=== PATIENT | female | born 1960 | race Two or more races ===

== ENCOUNTER 2021-12-24 17:41 | Inpatient (IN) | payer MEDICAID, SELFPAY ==
[~2021-12-24] VITALS: Ht 157.5 cm; Wt 74.4 kg
[~2021-12-24 17:41] MED LIST: CLON0.1T2 PO; DIPH50 PO; DIVA-112 PO; FLUO40CA7 PO; GABA-1201 PO; GABA800T PO; IBUP-2077 PO; IBUP-671 PO; MULT1TAB70 PO; PANT40TA54 PO; QUET100T PO; QUET25TA PO; TRAM50TA4 PO; TRAZ-186 PO
[2021-12-24 19:39] LABS: BASOPHILS % (AUTO) 0.3 % (0.0-2.0); HEMATOCRIT 31.8 % (36-46); HEMOGLOBIN 10.6 g/dL (12.0-16.0); LYMPHOCYTES # (AUTO) 1.6 K/uL (1.0-4.8); MEAN CORPUSCULAR HEMOGLOBIN 26.6 pg (26.0-34.0); MEAN CORPUSCULAR HGB CONC 33.3 G/dL (31.0-37.0); MEAN CORPUSCULAR VOLUME 80 fL (80-100); MONOCYTES # (AUTO) 0.6 K/uL (0.1-1.0); NEUTROPHILS # (AUTO) 5.6 K/uL (1.8-7.7); NEUTROPHILS % (AUTO) 69.7 % (40.0-70.0); PLATELET COUNT (AUTO) 251 K/uL (150-450); RED BLOOD CELL COUNT(AUTO) 3.97 MIL/uL (4.00-5.20); RED CELL DISTRIBUTION WIDTH 14.9 % (11.5-14.5)
[2021-12-24 20:02] LABS: ANION GAP 13 mmol/L (8-16); CALCIUM, TOTAL 8.2 mg/dL (8.8-10.5); CARBON DIOXIDE 26 mmol/L (22-29); CHLORIDE 107 mmol/L (98-107); CREATININE 0.67 mg/dL (0.60-1.30); GLOMERULAR FILTR. RATE CALC > 60 mL/min (>60); GLUCOSE,RANDOM 105 mg/dL (70-110); POTASSIUM 3.6 mmol/L (3.5-5.1); SODIUM SERUM 146 mmol/L (136-145); UREA NITROGEN, BLOOD 15 mg/dL (7-18)
[2021-12-24 20:06] LABS: ALANINE AMINOTRANSFERASE 35 U/L (12-78); ALBUMIN 3.3 g/dL (3.4-5.0); ALKALINE PHOSPHATASE 86 U/L (46-116); ASPARTATE AMINOTRANSFERASE 39 U/L (15-37); BILIRUBIN,TOTAL 0.1 mg/dL (0.1-1.0)
[2021-12-24 20:17] LABS: COVID AG,FIA SOURCE NASAL SWAB
[2021-12-24] MEDS ORDERED: OLANZapine 10 MG TABLET PO PRN (21:15)
[2021-12-24] MEDS ORDERED: ONDANSETRON HCL 4 MG TABLET PO ONE (21:30)
[2021-12-24] MEDS: LORazepam 2 MG TABLET PO PRN (21:37)
[2021-12-24] MEDS: ZOLPIDEM TARTRATE 10 MG TABLET PO PRN (21:37)
[2021-12-24 23:29] LABS: SALICYLATE < 2.8 mg/dL (2.8-20.0)
[2021-12-24 23:35] LABS: ACETAMINOPHEN < 2 mcg/mL (10-30)
[2021-12-25] VITALS (7 sets, daily range): BP systolic 145–162; BP diastolic 82–101
[2021-12-25] MEDS: LORazepam 2 MG TABLET PO PRN ×2 (00:38→06:04)
[2021-12-25] MEDS ORDERED: IBUPROFEN 800 MG TABLET PO PRN (06:30)
[2021-12-25] MEDS: PANTOPRAZOLE SODIUM 40 MG DR TABLET PO SCH (06:38)
[2021-12-25] MEDS ORDERED: LORazepam 2 MG TABLET PO PRN (07:00)
[2021-12-25 08:39] LABS: CHOL/HDL RATIO 2.3 (3.9-5.7)
[2021-12-25] MEDS: CloNIDine HCL 0.1 MG TABLET PO SCH ×2 (09:25→17:00)
[2021-12-25] MEDS: MULTIVITAMINS WITH MINERALS, THERAPEUTIC TABLET PO SCH (09:25)
[2021-12-25] MEDS: LORazepam 2 MG TABLET PO SCH ×4 (09:25→21:29)
[2021-12-25] MEDS ORDERED: DOCUSATE SODIUM 100 MG CAPSULE PO PRN (11:00)
[2021-12-25] MEDS ORDERED: ALBUTEROL SULFATE HFA 90 MCG/PUFF 8 GM INHALER IH PRN (11:00)
[2021-12-25] MEDS ORDERED: LOPERAMIDE HCL 2 MG CAPSULE PO PRN (11:00)
[2021-12-25] MEDS ORDERED: GuaiFENesin/D-METHORPHAN [SUGAR-FREE] 200-20MG/10 ML SYRUP UDCUP PO PRN (11:00)
[2021-12-25] MEDS ORDERED: NICOTINE 14 MG/24 HOUR PATCH TD PRN (11:00)
[2021-12-25] MEDS ORDERED: MAGNESIUM HYDROXIDE SUSPENSION 30 ML UDCUP PO PRN (11:00)
[2021-12-25] MEDS ORDERED: PETROLATUM,WHITE 28 GM JELLY TP PRN (11:00)
[2021-12-25] MEDS ORDERED: MAG HYDROX/AL HYDROX/SIMETH ES 30 ML SUSPENSION UDCUP PO PRN (11:00)
[2021-12-25] MEDS: ONDANSETRON HCL 4 MG TABLET PO PRN (12:06)
[2021-12-25] MEDS ORDERED: GABA-529 PO (13:57)
[2021-12-25] MEDS ORDERED: ZIPR80CA9 PO (13:57)
[2021-12-25] MEDS ORDERED: HYDR100C2 PO (13:57)
[2021-12-25] MEDS: ZIPRASIDONE HCL 80 MG CAPSULE PO SCH (21:29)
[2021-12-25] MEDS: HydrOXYzine PAMOATE 50 MG CAPSULE PO SCH (21:29)
[2021-12-25] MEDS: GABAPENTIN 100 MG CAPSULE PO SCH (21:29)
[2021-12-26] MEDS: PANTOPRAZOLE SODIUM 40 MG DR TABLET PO SCH (06:10)
[2021-12-26 08:25] VITALS: BP 151/99
[2021-12-26 08:32] VITALS: BP 151/99
[2021-12-26] MEDS: LORazepam 2 MG TABLET PO SCH ×4 (08:51→20:36)
[2021-12-26] MEDS: CloNIDine HCL 0.1 MG TABLET PO SCH ×2 (08:51→16:24)
[2021-12-26] MEDS: MULTIVITAMINS WITH MINERALS, THERAPEUTIC TABLET PO SCH (08:51)
[2021-12-26] MEDS: ONDANSETRON HCL 4 MG TABLET PO PRN (11:55)
[2021-12-26 16:19] VITALS: BP 155/100
[2021-12-26 16:22] VITALS: BP 155/100
[2021-12-26] MEDS: ACETAMINOPHEN 325 MG TABLET PO PRN (17:57)
[2021-12-26] MEDS: GABAPENTIN 100 MG CAPSULE PO SCH (20:13)
[2021-12-26] MEDS: ZIPRASIDONE HCL 80 MG CAPSULE PO SCH (20:14)
[2021-12-26] MEDS: HydrOXYzine PAMOATE 50 MG CAPSULE PO SCH (20:15)
[2021-12-27] VITALS (9 sets, daily range): BP systolic 142–158; BP diastolic 82–100
[2021-12-27] MEDS: LORazepam 2 MG TABLET PO PRN (05:30)
[2021-12-27] MEDS ORDERED: LORazepam 1 MG TABLET PO PRN (07:00)
[2021-12-27] MEDS: PANTOPRAZOLE SODIUM 40 MG DR TABLET PO SCH (07:03)
[2021-12-27] MEDS: MULTIVITAMINS WITH MINERALS, THERAPEUTIC TABLET PO SCH (08:56)
[2021-12-27] MEDS: CloNIDine HCL 0.1 MG TABLET PO SCH ×2 (08:56→16:23)
[2021-12-27] MEDS: LORazepam 1 MG TABLET PO SCH ×4 (08:58→21:04)
[2021-12-27] MEDS: IBUPROFEN 400 MG TABLET PO PRN (13:17)
[2021-12-27] MEDS: ACETAMINOPHEN 325 MG TABLET PO PRN (19:40)
[2021-12-27] MEDS: GABAPENTIN 100 MG CAPSULE PO SCH (20:07)
[2021-12-27] MEDS: ZIPRASIDONE HCL 80 MG CAPSULE PO SCH (20:07)
[2021-12-27] MEDS: HydrOXYzine PAMOATE 50 MG CAPSULE PO SCH (20:07)
[2021-12-28] MEDS: PANTOPRAZOLE SODIUM 40 MG DR TABLET PO SCH (06:21)
[2021-12-28 08:00] VITALS: BP 165/93
[2021-12-28] MEDS: MULTIVITAMINS WITH MINERALS, THERAPEUTIC TABLET PO SCH (08:34)
[2021-12-28] MEDS: CloNIDine HCL 0.1 MG TABLET PO SCH ×2 (08:34→16:07)
[2021-12-28 09:33] VITALS: BP 165/90
[2021-12-28] MEDS: IBUPROFEN 400 MG TABLET PO PRN (09:33)
[2021-12-28] MEDS: ONDANSETRON HCL 4 MG TABLET PO PRN (12:44)
[2021-12-28] MEDS: LORazepam 1 MG TABLET PO PRN ×3 (12:45→21:43)
[2021-12-28 16:00] VITALS: BP 178/100
[2021-12-28] MEDS: ACETAMINOPHEN 325 MG TABLET PO PRN (17:06)
[2021-12-28 17:11] VITALS: BP 159/95
[2021-12-28] MEDS: ZIPRASIDONE HCL 80 MG CAPSULE PO SCH (20:12)
[2021-12-28] MEDS: GABAPENTIN 100 MG CAPSULE PO SCH (20:12)
[2021-12-28] MEDS: HydrOXYzine PAMOATE 50 MG CAPSULE PO SCH (20:12)
[2021-12-29] MEDS: PANTOPRAZOLE SODIUM 40 MG DR TABLET PO SCH (06:42)
[2021-12-29 08:00] VITALS: BP 156/88
[2021-12-29] MEDS: CloNIDine HCL 0.1 MG TABLET PO SCH ×2 (10:08→17:42)
[2021-12-29] MEDS: MULTIVITAMINS WITH MINERALS, THERAPEUTIC TABLET PO SCH (10:08)
[2021-12-29] MEDS: LORazepam 2 MG TABLET PO PRN ×3 (11:15→19:53)
[2021-12-29 16:35] VITALS: BP 146/86
[2021-12-29] MEDS: HydrOXYzine PAMOATE 50 MG CAPSULE PO SCH (20:45)
[2021-12-29] MEDS: ZIPRASIDONE HCL 80 MG CAPSULE PO SCH (20:45)
[2021-12-29] MEDS: GABAPENTIN 100 MG CAPSULE PO SCH (20:45)
[2021-12-29] MEDS: ZOLPIDEM TARTRATE 10 MG TABLET PO PRN (21:30)
[2021-12-30] MEDS: PANTOPRAZOLE SODIUM 40 MG DR TABLET PO SCH (06:44)
[2021-12-30] MEDS: CloNIDine HCL 0.1 MG TABLET PO SCH ×3 (08:57→16:11)
[2021-12-30] MEDS: MULTIVITAMINS WITH MINERALS, THERAPEUTIC TABLET PO SCH (08:57)
[2021-12-30 09:11] VITALS: BP 109/65
[2021-12-30] MEDS: IBUPROFEN 400 MG TABLET PO PRN (09:11)
[2021-12-30] MEDS ORDERED: HYDR100C2 PO (09:55)
[2021-12-30] MEDS ORDERED: ZIPR80CA9 PO (09:55)
[2021-12-30] MEDS ORDERED: GABA-529 PO (09:55)
[2021-12-30] MEDS: LORazepam 2 MG TABLET PO PRN ×2 (10:06→14:08)
[2021-12-30 13:05] LABS: COVID AG,FIA SOURCE NASOPHARYNGEAL
[2021-12-30 16:32] VITALS: BP 157/98
== END 2021-12-30 16:40 | disposition home or self-care (01) | DRG 753 ==
LOC: EMS 17:43 → 3EX 12-25 00:03 → 3EI 12-26 14:00
PROVIDERS: ADMIT Psychiatry & Neurology Psychiatry; ATTEND Psychiatry & Neurology Psychiatry
DX: F31.4 Bipolar disorder, current episode depressed, severe, without psychotic features (principal); R45.851 Suicidal ideations; B18.2 Chronic viral hepatitis C; F10.239 Alcohol dependence with withdrawal, unspecified; F20.9 Schizophrenia, unspecified; I10 Essential (primary) hypertension; K21.9 Gastro-esophageal reflux disease without esophagitis; K58.9 Irritable bowel syndrome, unspecified; G89.29 Other chronic pain; M54.50 Low back pain, unspecified; M19.90 Unspecified osteoarthritis, unspecified site; Z79.899 Other long term (current) drug therapy; Z91.51 Personal history of suicidal behavior; Z88.8 Allergy status to other drugs, medicaments and biological substances; Z20.822 Contact with and (suspected) exposure to COVID-19
CPT/HCPCS: 80053; 80061; 85025; 93005; 99285; G0378; G0480; G0481; Q0162

== ENCOUNTER 2022-01-10 20:15 | Inpatient (IN) | payer MEDICAID ==
[~2022-01-10] VITALS: Ht 157.5 cm; Wt 73.9 kg
[~2022-01-10 20:15] MED LIST changes: -DIPH50 PO; -DIVA-112 PO; -FLUO40CA7 PO; -GABA-1201 PO; +GABA-529 PO; -GABA800T PO; +HYDR100C2 PO; -IBUP-2077 PO; -IBUP-671 PO; -QUET100T PO; -QUET25TA PO; -TRAM50TA4 PO; -TRAZ-186 PO; +ZIPR80CA9 PO
[2022-01-10] MEDS ORDERED: SODIUM CHLORIDE 0.9% 1,000 ML IV ONE (21:45)
[2022-01-10] MEDS ORDERED: LORazepam 2 MG/ML VIAL IVP ONE (21:45)
[2022-01-10 21:54] LABS: BASOPHILS % (AUTO) 0.8 % (0.0-2.0); EOSINOPHILS % (AUTO) 0.3 % (1.0-6.0); HEMATOCRIT 33.8 % (36-46); HEMOGLOBIN 11.2 g/dL (12.0-16.0); LYMPHOCYTES # (AUTO) 1.7 K/uL (1.0-4.8); LYMPHOCYTES % (AUTO) 21.1 % (22.0-44.0); MEAN CORPUSCULAR HEMOGLOBIN 26.9 pg (26.0-34.0); MEAN CORPUSCULAR HGB CONC 33.1 G/dL (31.0-37.0); MEAN CORPUSCULAR VOLUME 81 fL (80-100); MONOCYTES # (AUTO) 0.5 K/uL (0.1-1.0); MONOCYTES % (AUTO) 5.9 % (2.0-9.0); NEUTROPHILS # (AUTO) 5.7 K/uL (1.8-7.7); NEUTROPHILS % (AUTO) 71.9 % (40.0-70.0); PLATELET COUNT (AUTO) 262 K/uL (150-450); RED BLOOD CELL COUNT(AUTO) 4.16 MIL/uL (4.00-5.20); RED CELL DISTRIBUTION WIDTH 16.8 % (11.5-14.5)
[2022-01-10 21:56] LABS: COVID AG,FIA SOURCE NASOPHARYNGEAL
[2022-01-10] MEDS ORDERED: ONDANSETRON HCL 4 MG/2 ML VIAL IVP ONE (22:00)
[2022-01-10 22:04] LABS: ANION GAP 14 mmol/L (8-16); CALCIUM, TOTAL 8.1 mg/dL (8.8-10.5); CARBON DIOXIDE 25 mmol/L (22-29); CHLORIDE 102 mmol/L (98-107); CREATININE 0.82 mg/dL (0.60-1.30); GLOMERULAR FILTR. RATE CALC > 60 mL/min (>60); GLUCOSE,RANDOM 85 mg/dL (70-110); SODIUM SERUM 141 mmol/L (136-145); UREA NITROGEN, BLOOD 13 mg/dL (7-18)
[2022-01-10 22:04] LABS: AMPHET/METH SCREEN,URINE NEGATIVE (NEGATIVE); BARBITURATE SCREEN, URINE NEGATIVE (NEGATIVE); BENZODIAZEPINES SCREEN,URINE NEGATIVE (NEGATIVE); CANNABINOID SCREEN,URINE NEGATIVE (NEGATIVE); COCAINE SCREEN,URINE NEGATIVE (NEGATIVE); METHADONE SCREEN, URINE NEGATIVE (NEGATIVE); OPIATE SCREEN,URINE NEGATIVE (NEGATIVE)
[2022-01-10 22:05] LABS: PHENCYCLIDINE SCREEN,URINE NEGATIVE (NEGATIVE)
[2022-01-10 22:10] LABS: ALANINE AMINOTRANSFERASE 40 U/L (12-78); ALBUMIN 3.7 g/dL (3.4-5.0); ALKALINE PHOSPHATASE 82 U/L (46-116); ASPARTATE AMINOTRANSFERASE 42 U/L (15-37); BILIRUBIN,TOTAL 0.5 mg/dL (0.1-1.0); TOTAL PROTEIN, SERUM 7.6 g/dL (6.4-8.2)
[2022-01-10] MEDS ORDERED: DiphenhydrAMINE HCL 50 MG/ML VIAL IVP ONE (23:45)
[2022-01-10] MEDS ORDERED: METOCLOPRAMIDE HCL 5 MG/ML 2 ML VIAL IVP ONE (23:45)
[2022-01-11] MEDS ORDERED: ACETAMINOPHEN 500 MG TABLET PO ONE (01:15)
[2022-01-11] MEDS ORDERED: LORazepam 2 MG/ML VIAL IVP ONE ×3 (01:30→06:00)
[2022-01-11] MEDS ORDERED: IOHEXOL 350 MG/ML 100 ML VIAL ONE (01:50)
[2022-01-11] MEDS ORDERED: SODIUM CHLORIDE 0.9% 100 ML ONE (01:51)
[2022-01-11 03:19] LABS: INFLUENZA TYPE A NEGATIVE FOR TYPE A (NEGATIVE); INFLUENZA TYPE B NEGATIVE FOR TYPE B (NEGATIVE)
[2022-01-11] MEDS ORDERED: HEPARIN SODIUM 25000 UNITS/D5W 250 ML IV PRN (05:00)
[2022-01-11] MEDS ORDERED: ONDANSETRON HCL 4 MG/2 ML VIAL IVP PRN (05:30)
[2022-01-11] MEDS ORDERED: 0.9% SODIUM CHLORIDE 10 ML SYRINGE IVP PRN (05:30)
[2022-01-11] MEDS ORDERED: ACETAMINOPHEN 325 MG TABLET PO PRN (05:30)
[2022-01-11] MEDS ORDERED: MORPHINE SULFATE 2 MG/ML SYRINGE IVP PRN (08:45)
[2022-01-11] MEDS ORDERED: BISACODYL 10 MG RECTAL RECTAL SUPPOSITORY PR PRN (08:45)
[2022-01-11] MEDS ORDERED: HEPARIN SODIUM,PORCINE 5,000 UNITS/ML VIAL IVP PRN ×2 (08:45)
[2022-01-11] MEDS ORDERED: MAGNESIUM HYDROXIDE SUSPENSION 30 ML UDCUP PO PRN (08:45)
[2022-01-11 09:07] LABS: BASOPHILS % (AUTO) 0.6 % (0.0-2.0); EOSINOPHILS % (AUTO) 0.5 % (1.0-6.0); HEMATOCRIT 31.4 % (36-46); HEMOGLOBIN 10.3 g/dL (12.0-16.0); LYMPHOCYTES # (AUTO) 0.9 K/uL (1.0-4.8); LYMPHOCYTES % (AUTO) 15.1 % (22.0-44.0); MEAN CORPUSCULAR HEMOGLOBIN 26.9 pg (26.0-34.0); MEAN CORPUSCULAR HGB CONC 32.7 G/dL (31.0-37.0); MEAN CORPUSCULAR VOLUME 82 fL (80-100); MONOCYTES # (AUTO) 0.4 K/uL (0.1-1.0); MONOCYTES % (AUTO) 6.8 % (2.0-9.0); NEUTROPHILS # (AUTO) 4.7 K/uL (1.8-7.7); PLATELET COUNT (AUTO) 203 K/uL (150-450); RED BLOOD CELL COUNT(AUTO) 3.83 MIL/uL (4.00-5.20); RED CELL DISTRIBUTION WIDTH 17.4 % (11.5-14.5)
[2022-01-11] MEDS: HEPARIN SODIUM 25000 UNITS/D5W 250 ML IV PRN ×2 (09:07→23:17)
[2022-01-11] MEDS: PANTOPRAZOLE SODIUM 40 MG DR TABLET PO SCH (09:08)
[2022-01-11] MEDS: DOCUSATE SODIUM 100 MG CAPSULE PO SCH ×2 (09:08→20:56)
[2022-01-11] MEDS ORDERED: WARFARIN SODIUM-INR 2.0-3.0-RX DOSING PER PROTOCOL PO PRN (09:15)
[2022-01-11] MEDS: LORazepam 2 MG/ML VIAL IVP PRN ×3 (11:54→23:59)
[2022-01-11 12:40] VITALS: BP 152/93
[2022-01-11] MEDS: ONDANSETRON HCL 4 MG/2 ML VIAL IVP PRN ×2 (12:44→18:36)
[2022-01-11 15:04] VITALS: BP 156/97
[2022-01-11] MEDS ORDERED: HEPARIN SODIUM,PORCINE 5,000 UNITS/ML VIAL SQ SCH (16:00)
[2022-01-11 16:52] VITALS: BP 151/77
[2022-01-11] MEDS ORDERED: WARFARIN SODIUM 5 MG TABLET PO ONE (17:00)
[2022-01-11 20:22] VITALS: BP 149/90
[2022-01-11] MEDS: ChlordiazePOXIDE HCL 25 MG CAPSULE PO PRN (21:41)
[2022-01-12] VITALS (8 sets, daily range): BP systolic 136–155; BP diastolic 88–102
[2022-01-12] MEDS: HEPARIN SODIUM 25000 UNITS/D5W 250 ML IV PRN ×4 (00:11→20:17)
[2022-01-12] MEDS: ChlordiazePOXIDE HCL 25 MG CAPSULE PO PRN (03:28)
[2022-01-12] MEDS: ACETAMINOPHEN 325 MG TABLET PO PRN ×3 (03:29→20:07)
[2022-01-12] MEDS: LORazepam 2 MG/ML VIAL IVP PRN ×3 (06:17→18:32)
[2022-01-12] MEDS: DOCUSATE SODIUM 100 MG CAPSULE PO SCH ×2 (08:21→20:07)
[2022-01-12] MEDS: PANTOPRAZOLE SODIUM 40 MG DR TABLET PO SCH (08:21)
[2022-01-12] MEDS: ChlordiazePOXIDE HCL 25 MG CAPSULE PO SCH ×4 (08:22→20:07)
[2022-01-12] MEDS ORDERED: *CLINICAL-WARFARIN SODIUM DOSING CLINICAL ONE (09:11)
[2022-01-12 09:12] LABS: BASOPHILS % (AUTO) 0.7 % (0.0-2.0); EOSINOPHILS % (AUTO) 5.5 % (1.0-6.0); HEMATOCRIT 35.3 % (36-46); HEMOGLOBIN 11.6 g/dL (12.0-16.0); LYMPHOCYTES # (AUTO) 1.3 K/uL (1.0-4.8); LYMPHOCYTES % (AUTO) 25.7 % (22.0-44.0); MEAN CORPUSCULAR HEMOGLOBIN 26.9 pg (26.0-34.0); MEAN CORPUSCULAR VOLUME 82 fL (80-100); MONOCYTES # (AUTO) 0.5 K/uL (0.1-1.0); MONOCYTES % (AUTO) 9.9 % (2.0-9.0); NEUTROPHILS % (AUTO) 58.2 % (40.0-70.0); PLATELET COUNT (AUTO) 160 K/uL (150-450); RED BLOOD CELL COUNT(AUTO) 4.32 MIL/uL (4.00-5.20); RED CELL DISTRIBUTION WIDTH 17.1 % (11.5-14.5)
[2022-01-12 09:25] LABS: PROTHROMBIN TIME 10.7 SEC (9.4-11.6)
[2022-01-12 09:29] LABS: ALANINE AMINOTRANSFERASE 34 U/L (12-78); ALBUMIN 3.5 g/dL (3.4-5.0); ALKALINE PHOSPHATASE 80 U/L (46-116); ANION GAP 6 mmol/L (8-16); ASPARTATE AMINOTRANSFERASE 34 U/L (15-37); BILIRUBIN,TOTAL 0.7 mg/dL (0.1-1.0); CALCIUM, TOTAL 9.2 mg/dL (8.8-10.5); CARBON DIOXIDE 29 mmol/L (22-29); CHLORIDE 98 mmol/L (98-107); CREATININE 0.78 mg/dL (0.60-1.30); GLOMERULAR FILTR. RATE CALC > 60 mL/min (>60); GLUCOSE,RANDOM 125 mg/dL (70-110); POTASSIUM 3.7 mmol/L (3.5-5.1); SODIUM SERUM 133 mmol/L (136-145); TOTAL PROTEIN, SERUM 7.6 g/dL (6.4-8.2); UREA NITROGEN, BLOOD 9 mg/dL (7-18)
[2022-01-12] MEDS: ONDANSETRON HCL 4 MG/2 ML VIAL IVP PRN ×2 (12:14→18:32)
[2022-01-12] MEDS ORDERED: MAGNESIUM SULFATE 2 GM, MVI, ADULT NO.1 WITH VIT K 10 ML, THIAMINE 100 MG, FOLIC ACID 1... IV ONE ×5 (13:00)
[2022-01-12] MEDS ORDERED: WARFARIN SODIUM 5 MG TABLET PO ONE (17:00)
[2022-01-12] MEDS ORDERED: SODIUM CHLORIDE 0.9% 250 ML IV ONE (19:47)
[2022-01-12] MEDS: GABAPENTIN 100 MG CAPSULE PO SCH (20:06)
[2022-01-12] MEDS: CloNIDine HCL 0.1 MG TABLET PO SCH (20:07)
[2022-01-13] VITALS (7 sets, daily range): BP systolic 122–140; BP diastolic 74–89
[2022-01-13] MEDS: LORazepam 2 MG/ML VIAL IVP PRN ×4 (01:01→22:00)
[2022-01-13] MEDS: ONDANSETRON HCL 4 MG/2 ML VIAL IVP PRN ×3 (01:01→22:01)
[2022-01-13] MEDS: ACETAMINOPHEN 325 MG TABLET PO PRN ×3 (02:38→20:02)
[2022-01-13] MEDS: ChlordiazePOXIDE HCL 25 MG CAPSULE PO PRN ×2 (05:18→05:20)
[2022-01-13] MEDS: DOCUSATE SODIUM 100 MG CAPSULE PO SCH ×2 (08:22→20:01)
[2022-01-13] MEDS: PANTOPRAZOLE SODIUM 40 MG DR TABLET PO SCH (08:22)
[2022-01-13] MEDS: ChlordiazePOXIDE HCL 25 MG CAPSULE PO SCH ×4 (08:23→20:02)
[2022-01-13] MEDS: CloNIDine HCL 0.1 MG TABLET PO SCH ×2 (08:23→20:02)
[2022-01-13] MEDS: MULTIVITAMINS WITH MINERALS, THERAPEUTIC TABLET PO SCH (08:30)
[2022-01-13 08:44] LABS: BASOPHILS % (AUTO) 0.6 % (0.0-2.0); EOSINOPHILS % (AUTO) 8.3 % (1.0-6.0); HEMATOCRIT 32.4 % (36-46); HEMOGLOBIN 10.8 g/dL (12.0-16.0); LYMPHOCYTES # (AUTO) 1.2 K/uL (1.0-4.8); LYMPHOCYTES % (AUTO) 30.7 % (22.0-44.0); MEAN CORPUSCULAR HEMOGLOBIN 27.5 pg (26.0-34.0); MEAN CORPUSCULAR HGB CONC 33.4 G/dL (31.0-37.0); MEAN CORPUSCULAR VOLUME 82 fL (80-100); MONOCYTES # (AUTO) 0.4 K/uL (0.1-1.0); MONOCYTES % (AUTO) 9.7 % (2.0-9.0); NEUTROPHILS % (AUTO) 50.7 % (40.0-70.0); PLATELET COUNT (AUTO) 128 K/uL (150-450); RED BLOOD CELL COUNT(AUTO) 3.94 MIL/uL (4.00-5.20)
[2022-01-13 08:47] LABS: ANION GAP 4 mmol/L (8-16); CALCIUM, TOTAL 8.7 mg/dL (8.8-10.5); CARBON DIOXIDE 31 mmol/L (22-29); CHLORIDE 101 mmol/L (98-107); CREATININE 0.76 mg/dL (0.60-1.30); GLOMERULAR FILTR. RATE CALC > 60 mL/min (>60); GLUCOSE,RANDOM 105 mg/dL (70-110); SODIUM SERUM 136 mmol/L (136-145); UREA NITROGEN, BLOOD 9 mg/dL (7-18)
[2022-01-13 08:48] LABS: INR 1.1 (0.9-1.1); PROTHROMBIN TIME 11.2 SEC (9.4-11.6)
[2022-01-13] MEDS: HYDROCODONE/ACETAMINOPHEN 5-325 MG TABLET PO PRN (16:13)
[2022-01-13] MEDS ORDERED: WARFARIN SODIUM 5 MG TABLET PO ONE (17:00)
[2022-01-13] MEDS: HEPARIN SODIUM 25000 UNITS/D5W 250 ML IV PRN (17:38)
[2022-01-13] MEDS: GABAPENTIN 100 MG CAPSULE PO SCH (20:01)
[2022-01-14] VITALS (7 sets, daily range): BP systolic 107–131; BP diastolic 67–79
[2022-01-14] MEDS: ChlordiazePOXIDE HCL 25 MG CAPSULE PO PRN ×2 (00:29→05:51)
[2022-01-14] MEDS: HYDROCODONE/ACETAMINOPHEN 5-325 MG TABLET PO PRN (00:30)
[2022-01-14] MEDS: ACETAMINOPHEN 325 MG TABLET PO PRN ×4 (03:28→20:11)
[2022-01-14] MEDS: LORazepam 2 MG/ML VIAL IVP PRN ×2 (03:28→10:49)
[2022-01-14] MEDS: ONDANSETRON HCL 4 MG/2 ML VIAL IVP PRN ×2 (05:51→15:24)
[2022-01-14 07:31] LABS: BASOPHILS % (AUTO) 0.8 % (0.0-2.0); EOSINOPHILS % (AUTO) 8.3 % (1.0-6.0); HEMATOCRIT 29.6 % (36-46); HEMOGLOBIN 10.1 g/dL (12.0-16.0); LYMPHOCYTES # (AUTO) 0.9 K/uL (1.0-4.8); LYMPHOCYTES % (AUTO) 29.1 % (22.0-44.0); MEAN CORPUSCULAR HEMOGLOBIN 27.9 pg (26.0-34.0); MEAN CORPUSCULAR HGB CONC 34.1 G/dL (31.0-37.0); MEAN CORPUSCULAR VOLUME 82 fL (80-100); MONOCYTES # (AUTO) 0.3 K/uL (0.1-1.0); NEUTROPHILS # (AUTO) 1.6 K/uL (1.8-7.7); NEUTROPHILS % (AUTO) 51.8 % (40.0-70.0); PLATELET COUNT (AUTO) 105 K/uL (150-450); RED BLOOD CELL COUNT(AUTO) 3.62 MIL/uL (4.00-5.20); RED CELL DISTRIBUTION WIDTH 16.4 % (11.5-14.5)
[2022-01-14 07:41] LABS: ANION GAP 5 mmol/L (8-16); CALCIUM, TOTAL 8.8 mg/dL (8.8-10.5); CARBON DIOXIDE 30 mmol/L (22-29); CHLORIDE 103 mmol/L (98-107); CREATININE 0.81 mg/dL (0.60-1.30); GLOMERULAR FILTR. RATE CALC > 60 mL/min (>60); GLUCOSE,RANDOM 103 mg/dL (70-110); SODIUM SERUM 138 mmol/L (136-145); UREA NITROGEN, BLOOD 14 mg/dL (7-18)
[2022-01-14 07:44] LABS: INR 1.2 (0.9-1.1); PROTHROMBIN TIME 12.6 SEC (9.4-11.6)
[2022-01-14] MEDS: MULTIVITAMINS WITH MINERALS, THERAPEUTIC TABLET PO SCH (08:32)
[2022-01-14] MEDS: ChlordiazePOXIDE HCL 10 MG CAPSULE PO SCH ×4 (08:32→20:05)
[2022-01-14] MEDS: CloNIDine HCL 0.1 MG TABLET PO SCH ×4 (08:32→21:20)
[2022-01-14] MEDS: PANTOPRAZOLE SODIUM 40 MG DR TABLET PO SCH (08:32)
[2022-01-14] MEDS: DOCUSATE SODIUM 100 MG CAPSULE PO SCH ×2 (08:32→20:05)
[2022-01-14] MEDS: ChlordiazePOXIDE HCL 10 MG CAPSULE PO PRN (15:00)
[2022-01-14] MEDS: HEPARIN SODIUM 25000 UNITS/D5W 250 ML IV PRN ×2 (16:30→16:38)
[2022-01-14] MEDS ORDERED: WARFARIN SODIUM 5 MG TABLET PO ONE (17:00)
[2022-01-14] MEDS: ZIPRASIDONE HCL 80 MG CAPSULE PO SCH (20:06)
[2022-01-14] MEDS: GABAPENTIN 100 MG CAPSULE PO SCH ×2 (20:06→21:00)
[2022-01-14] MEDS ORDERED: ZIPRASIDONE HCL 80 MG CAPSULE PO SCH (21:00)
[2022-01-15 04:09] VITALS: BP 124/75
[2022-01-15] MEDS: ChlordiazePOXIDE HCL 10 MG CAPSULE PO PRN ×4 (04:54→20:08)
[2022-01-15 07:44] LABS: INR 1.7 (0.9-1.1); PROTHROMBIN TIME 17.4 SEC (9.4-11.6)
[2022-01-15 08:00] VITALS: BP 130/78
[2022-01-15] MEDS: CloNIDine HCL 0.1 MG TABLET PO SCH ×4 (08:33→20:15)
[2022-01-15] MEDS: HEPARIN SODIUM 25000 UNITS/D5W 250 ML IV PRN ×2 (08:33→18:27)
[2022-01-15] MEDS: DOCUSATE SODIUM 100 MG CAPSULE PO SCH ×2 (08:34→20:09)
[2022-01-15] MEDS: MULTIVITAMINS WITH MINERALS, THERAPEUTIC TABLET PO SCH (08:34)
[2022-01-15] MEDS: PANTOPRAZOLE SODIUM 40 MG DR TABLET PO SCH ×2 (08:34→08:35)
[2022-01-15] MEDS: ACETAMINOPHEN 325 MG TABLET PO PRN ×2 (14:31→20:09)
[2022-01-15 16:00] VITALS: BP 117/74
[2022-01-15 16:01] VITALS: BP 117/74
[2022-01-15] MEDS ORDERED: WARFARIN SODIUM 2 MG TABLET PO ONE (17:00)
[2022-01-15 20:04] VITALS: BP 119/78
[2022-01-15] MEDS: ZIPRASIDONE HCL 80 MG CAPSULE PO SCH (20:08)
[2022-01-15] MEDS: GABAPENTIN 100 MG CAPSULE PO SCH ×2 (20:08→20:15)
[2022-01-16] MEDS: ZOLPIDEM TARTRATE 5 MG TABLET PO PRN (01:23)
[2022-01-16 04:38] VITALS: BP 125/79
[2022-01-16 08:15] VITALS: BP 130/85
[2022-01-16] MEDS: MULTIVITAMINS WITH MINERALS, THERAPEUTIC TABLET PO SCH (08:29)
[2022-01-16] MEDS: CloNIDine HCL 0.1 MG TABLET PO SCH ×4 (08:29→20:25)
[2022-01-16] MEDS: DOCUSATE SODIUM 100 MG CAPSULE PO SCH ×2 (08:29→20:10)
[2022-01-16] MEDS: PANTOPRAZOLE SODIUM 40 MG DR TABLET PO SCH ×2 (08:29→09:00)
[2022-01-16 08:36] LABS: PROTHROMBIN TIME 20.1 SEC (9.4-11.6)
[2022-01-16] MEDS: HEPARIN SODIUM 25000 UNITS/D5W 250 ML IV PRN (08:53)
[2022-01-16] MEDS ORDERED: WARFARIN SODIUM 7.5 MG TABLET PO ONE (17:00)
[2022-01-16 17:05] VITALS: BP 131/84
[2022-01-16] MEDS: HYDROCODONE/ACETAMINOPHEN 5-325 MG TABLET PO PRN (17:12)
[2022-01-16 19:45] VITALS: BP 120/67
[2022-01-16] MEDS: ACETAMINOPHEN 325 MG TABLET PO PRN (20:09)
[2022-01-16] MEDS: GABAPENTIN 100 MG CAPSULE PO SCH ×3 (20:10→20:25)
[2022-01-16] MEDS: ZIPRASIDONE HCL 80 MG CAPSULE PO SCH (20:10)
[2022-01-17 05:30] VITALS: BP 128/81
[2022-01-17] MEDS: MULTIVITAMINS WITH MINERALS, THERAPEUTIC TABLET PO SCH (08:14)
[2022-01-17] MEDS: PANTOPRAZOLE SODIUM 40 MG DR TABLET PO SCH (08:14)
[2022-01-17] MEDS: DOCUSATE SODIUM 100 MG CAPSULE PO SCH ×2 (08:14→20:47)
[2022-01-17] MEDS: CloNIDine HCL 0.1 MG TABLET PO SCH ×2 (08:14→20:47)
[2022-01-17 08:26] VITALS: BP 155/94
[2022-01-17 09:21] LABS: PROTHROMBIN TIME 20.3 SEC (9.4-11.6)
[2022-01-17 17:00] VITALS: BP 146/82
[2022-01-17] MEDS ORDERED: WARFARIN SODIUM 5 MG TABLET PO SCH (17:00)
[2022-01-17] MEDS: ACETAMINOPHEN 325 MG TABLET PO PRN ×2 (17:15→20:47)
[2022-01-17 20:05] VITALS: BP 134/85
[2022-01-17] MEDS: ZOLPIDEM TARTRATE 5 MG TABLET PO PRN (20:46)
[2022-01-17] MEDS: GABAPENTIN 100 MG CAPSULE PO SCH (20:47)
[2022-01-17] MEDS: ZIPRASIDONE HCL 80 MG CAPSULE PO SCH (20:47)
[2022-01-18 05:00] VITALS: BP 115/79
[2022-01-18 07:32] LABS: INR 1.6 (0.9-1.1); PROTHROMBIN TIME 16.6 SEC (9.4-11.6)
[2022-01-18] MEDS: DOCUSATE SODIUM 100 MG CAPSULE PO SCH ×2 (08:24→20:38)
[2022-01-18] MEDS: PANTOPRAZOLE SODIUM 40 MG DR TABLET PO SCH (08:24)
[2022-01-18] MEDS: MULTIVITAMINS WITH MINERALS, THERAPEUTIC TABLET PO SCH (08:24)
[2022-01-18] MEDS: CloNIDine HCL 0.1 MG TABLET PO SCH ×2 (08:24→20:37)
[2022-01-18 10:52] LABS: COVID AG,FIA SOURCE NASAL SWAB
[2022-01-18] MEDS: ACETAMINOPHEN 325 MG TABLET PO PRN (15:25)
[2022-01-18] MEDS ORDERED: WARFARIN SODIUM 7.5 MG TABLET PO SCH (17:00)
[2022-01-18] MEDS: IBUPROFEN 800 MG TABLET PO PRN (20:25)
[2022-01-18 20:30] VITALS: BP 125/71
[2022-01-18] MEDS: GABAPENTIN 100 MG CAPSULE PO SCH (20:38)
[2022-01-18] MEDS: ZIPRASIDONE HCL 80 MG CAPSULE PO SCH (20:38)
[2022-01-19 04:58] VITALS: BP 124/77
[2022-01-19 07:18] LABS: INR 1.4 (0.9-1.1); PROTHROMBIN TIME 14.7 SEC (9.4-11.6)
[2022-01-19 08:14] VITALS: BP 128/83
[2022-01-19 09:17] VITALS: BP 134/82
[2022-01-19] MEDS: DOCUSATE SODIUM 100 MG CAPSULE PO SCH ×2 (09:20→19:42)
[2022-01-19] MEDS: MULTIVITAMINS WITH MINERALS, THERAPEUTIC TABLET PO SCH (09:20)
[2022-01-19] MEDS: PANTOPRAZOLE SODIUM 40 MG DR TABLET PO SCH (09:20)
[2022-01-19] MEDS: CloNIDine HCL 0.1 MG TABLET PO SCH ×2 (09:20→19:43)
[2022-01-19 16:10] VITALS: BP 120/84
[2022-01-19] MEDS: WARFARIN SODIUM 3 MG TABLET PO SCH (17:16)
[2022-01-19 19:35] VITALS: BP 146/81
[2022-01-19] MEDS: IBUPROFEN 800 MG TABLET PO PRN (19:43)
[2022-01-19] MEDS: ZIPRASIDONE HCL 80 MG CAPSULE PO SCH (19:43)
[2022-01-19] MEDS: GABAPENTIN 100 MG CAPSULE PO SCH (19:43)
[2022-01-20 04:18] VITALS: BP 121/78
[2022-01-20 07:12] LABS: INR 1.4 (0.9-1.1); PROTHROMBIN TIME 14.2 SEC (9.4-11.6)
[2022-01-20 07:54] VITALS: BP 148/81
[2022-01-20] MEDS: PANTOPRAZOLE SODIUM 40 MG DR TABLET PO SCH (08:51)
[2022-01-20] MEDS: MULTIVITAMINS WITH MINERALS, THERAPEUTIC TABLET PO SCH (08:51)
[2022-01-20] MEDS: CloNIDine HCL 0.1 MG TABLET PO SCH ×2 (08:51→20:25)
[2022-01-20] MEDS: DOCUSATE SODIUM 100 MG CAPSULE PO SCH ×2 (08:51→20:56)
[2022-01-20 15:33] VITALS: BP 130/88
[2022-01-20] MEDS: WARFARIN SODIUM 3 MG TABLET PO SCH (17:20)
[2022-01-20 20:34] VITALS: BP 153/91
[2022-01-20] MEDS: IBUPROFEN 800 MG TABLET PO PRN (20:56)
[2022-01-20] MEDS: ZIPRASIDONE HCL 80 MG CAPSULE PO SCH (20:56)
[2022-01-20] MEDS: GABAPENTIN 100 MG CAPSULE PO SCH (20:56)
[2022-01-20] MEDS: ZOLPIDEM TARTRATE 5 MG TABLET PO PRN (20:56)
[2022-01-21 05:29] VITALS: BP 100/71
[2022-01-21 06:38] LABS: INR 1.4 (0.9-1.1); PROTHROMBIN TIME 14.5 SEC (9.4-11.6)
[2022-01-21 07:55] VITALS: BP 144/100
[2022-01-21] MEDS: CloNIDine HCL 0.1 MG TABLET PO SCH ×2 (08:15→20:27)
[2022-01-21] MEDS: MULTIVITAMINS WITH MINERALS, THERAPEUTIC TABLET PO SCH (08:15)
[2022-01-21] MEDS: DOCUSATE SODIUM 100 MG CAPSULE PO SCH ×2 (08:16→20:28)
[2022-01-21] MEDS: PANTOPRAZOLE SODIUM 40 MG DR TABLET PO SCH (08:16)
[2022-01-21 15:34] VITALS: BP 151/90
[2022-01-21] MEDS ORDERED: WARFARIN SODIUM 5 MG TABLET PO ONE (17:00)
[2022-01-21 19:45] VITALS: BP 148/96
[2022-01-21] MEDS: ZOLPIDEM TARTRATE 5 MG TABLET PO PRN (20:28)
[2022-01-21] MEDS: IBUPROFEN 800 MG TABLET PO PRN (20:28)
[2022-01-21] MEDS: GABAPENTIN 100 MG CAPSULE PO SCH (20:31)
[2022-01-21] MEDS: ZIPRASIDONE HCL 80 MG CAPSULE PO SCH (20:31)
[2022-01-22 05:06] VITALS: BP 121/80
[2022-01-22 08:03] VITALS: BP 120/79
[2022-01-22] MEDS: PANTOPRAZOLE SODIUM 40 MG DR TABLET PO SCH (09:13)
[2022-01-22] MEDS: MULTIVITAMINS WITH MINERALS, THERAPEUTIC TABLET PO SCH (09:13)
[2022-01-22] MEDS: APIXABAN 5 MG TABLET PO SCH ×2 (09:13→20:31)
[2022-01-22] MEDS: CloNIDine HCL 0.1 MG TABLET PO SCH ×2 (09:13→20:36)
[2022-01-22] MEDS: DOCUSATE SODIUM 100 MG CAPSULE PO SCH ×2 (09:13→20:31)
[2022-01-22] MEDS ORDERED: CLON0.1T2 PO (13:19)
[2022-01-22] MEDS ORDERED: APIX5TAB PO (13:19)
[2022-01-22] MEDS ORDERED: ZIPR80CA2 PO (13:19)
[2022-01-22] MEDS ORDERED: IBUP-2077 PO (13:19)
[2022-01-22] MEDS ORDERED: MULT-1239 PO (13:19)
[2022-01-22] MEDS ORDERED: PANT-31 PO (13:19)
[2022-01-22] MEDS ORDERED: MOM30 PO (13:19)
[2022-01-22] MEDS ORDERED: DOCU-119 PO (13:19)
[2022-01-22] MEDS ORDERED: BISA10SU11 PR (13:19)
[2022-01-22] MEDS ORDERED: GABA-1216 PO (13:19)
[2022-01-22 16:23] VITALS: BP 160/91
[2022-01-22 20:00] VITALS: BP 131/79
[2022-01-22] MEDS: GABAPENTIN 100 MG CAPSULE PO SCH (20:31)
[2022-01-22] MEDS: ZIPRASIDONE HCL 80 MG CAPSULE PO SCH (20:31)
== END 2022-01-22 21:20 | disposition home or self-care (01) | DRG 134 ==
LOC: EMS 20:17 → 5S 01-11 10:36 → 6S 01-14 13:40
PROVIDERS: ADMIT Internal Medicine; ATTEND Internal Medicine
PROC: 5A09357 Assistance with Respiratory Ventilation, Less than 24 Consecutive Hours, Continuous Positive Airway Pressure (ICD-10-PCS; principal; 2022-01-15)
DX: I26.99 Other pulmonary embolism without acute cor pulmonale (principal); D69.6 Thrombocytopenia, unspecified; F25.1 Schizoaffective disorder, depressive type; F31.9 Bipolar disorder, unspecified; F10.239 Alcohol dependence with withdrawal, unspecified; F41.9 Anxiety disorder, unspecified; K21.9 Gastro-esophageal reflux disease without esophagitis; Y90.8 Blood alcohol level of 240 mg/100 ml or more; D64.9 Anemia, unspecified; I10 Essential (primary) hypertension; R09.02 Hypoxemia; Z20.822 Contact with and (suspected) exposure to COVID-19; Z91.51 Personal history of suicidal behavior; Z79.01 Long term (current) use of anticoagulants; Z88.8 Allergy status to other drugs, medicaments and biological substances
CPT/HCPCS: 71045; 71275; 80048; 80053; 83880; 84484; 85025; 85379; 85610; 85730; 87804; 93005; 93970; 99291; G0378; G0480; J1200; J1644; J2060; J2270; J2405; J2765; J3411; J3475; J3490; J7030; J7050; Q9967; 36415-L1; 36415-TC